=== PATIENT | male | born 1990 | race Caucasian/White ===

== ENCOUNTER 2018-06-25 09:18 | Emergency (ER) | payer OTHER ==
[2018-06-25] MEDS: IBUPROFEN 600 MG TAB PO (09:38)
== END 2018-06-25 10:41 | disposition home or self-care (01) ==
LOC: M ED 09:18
DX: S93.402A Sprain of unspecified ligament of left ankle, initial encounter (principal); X50.1XXA Overexertion from prolonged static or awkward postures, initial encounter; Y92.410 Unspecified street and highway as the place of occurrence of the external cause; Y93.02 Activity, running
CPT/HCPCS: 73610

== ENCOUNTER 2025-01-09 10:39 | Emergency (ER) | payer OTHER ==
[~2025-01-09] VITALS: Ht 172.7 cm; Wt 90.9 kg
[~2025-01-09 10:39] MED LIST: IBUP-1022 PO
[2025-01-09 10:57] VITALS: BP 126/76; TEMP 98.3; O2SAT 96
[2025-01-09] MEDS: BOOSTRIX VACCINE (TETANUS/DIPHTH/ACEL. PERTUSSIS) 0.5ML SYR IM.IMMUN ONE (11:42)
== END 2025-01-09 11:55 | disposition home or self-care (01) ==
LOC: M ED 10:39
DX: S60.222A Contusion of left hand, initial encounter (principal); X58.XXXA Exposure to other specified factors, initial encounter; Y92.9 Unspecified place or not applicable; Y93.9 Activity, unspecified; Y99.0 Civilian activity done for income or pay